=== PATIENT | male | born 1990 | race Caucasian/White ===

== ENCOUNTER 2020-10-18 07:17 | Emergency (ER) | payer SELFPAY ==
[~2020-10-18] VITALS: Ht 175.3 cm; Wt 73.9 kg
--- NOTE | 2020-10-18 07:47 | NUR ---
INITINAL CONTACT WITH KENY. W/C/O POSSIBLE ABSCESS LEFT ARM, NOTICED BUMP 2 DAYS AGO, HAS GOTTEN LARGER. PATIENTREPORTS FEVERS SINCE YESTERDAY. LACY PELAYO TO BEDSIDE FOR EVALUATION. PT WITH STEADY GAIT TO BED. ATTACHED TO MONITORS. VSS. RUSSELL. LAVONNE.
[2020-10-18] MEDS ORDERED: LIDOCAINE-MPF 1%, 5ML ONE (07:51)
[2020-10-18] MEDS ORDERED: LIDOCAINE-MPF 1%, 5ML INFIL ONE (08:00)
[2020-10-18 08:54] VITALS: BP 112/82
--- NOTE | 2020-10-18 09:08 | NUR ---
Patient given discharge instructions and they have confirmed that they understand the instructions. Patient ambulatory with steady gait. NAD, all questions answered appropriately, denies additional needs at this time. No personal belongings left in room after discharge.
== END 2020-10-18 09:09 | disposition home or self-care (01) ==
LOC: ED 08:05
DX: L02.414 Cutaneous abscess of left upper limb (principal); R00.0 Tachycardia, unspecified
CPT/HCPCS: 10060; 99283